=== PATIENT | female | born 1940 | race Caucasian/White ===

== ENCOUNTER 2017-02-01 14:52 | Emergency (ER) | payer BC ==
[2017-02-01 15:34] VITALS: PULSE 84; TEMP 98.2; BMI 19.6
--- NOTE | 2017-02-01 16:15 | PDOC ---
History of Present Illness - General Chief Complaint: Injury Stated Complaint: FALL Time Seen by Provider: 02/01/17 15:51 History Source: Patient (dementia, poor historian), Family (daughter at bedside. ) Exam Limitations: Dementia (daughter at bedside) - History of Present Illness Initial Comments: 02/01/17 16:15 Patient is a 76 year old female visiting from [place], history of dementia , hypertension, B12 deficiency, hypothyroidism, left hip fracture with bilateral hip replacement currently wears a brace for the fracture. As per daughter patient was not a candidate for hip surgical repair. Today mother bent forward and the "left hip popped out". Daughter reports that in November the same happened. Mother is supposed to be wearing a brace and when she does not wear it her hip dislocates. Daughter presented a picture of an xray that demonstrated a significant fracture to the left hip prior to this incident. Patient is non weght bearing. Allergies: No known allergies Medications: [See Medication list] Family History: Non-contributory Social History: Denies smoking, alcohol use, or IVDU Vital signs on arrival are [notable for pulse of 84.] Review of Systems GENERAL/CONSTITUTIONAL: [No fever or chills. No weakness. No weight change.] HEAD, EYES, EARS, NOSE AND THROAT: [No change in vision. No ear pain or discharge. No sore throat. ] CARDIOVASCULAR: [No chest pain or shortness of breath.] RESPIRATORY: [No cough, wheezing, or hemoptysis.] GASTROINTESTINAL: [No nausea, vomiting, diarrhea or constipation. No rectal bleeding.] GENITOURINARY: [No dysuria, frequency, or change in urination.] MUSCULOSKELETAL: [No joint or muscle swelling or pain. No neck or back pain. Left hip pain. ] SKIN AND BREASTS: [No rash or easy bruising.] NEUROLOGIC: [No headache, vertigo, loss of consciousness, or loss of sensation.] ENDOCRINE: [No increased thirst. No abnormal weight change.] HEMATOLOGIC/LYMPHATIC: [No anemia, easy bleeding, or history of blood clots.] ALLERGIC/IMMUNOLOGIC: [No hives or skin allergy. No latex allergy.] Physical Exam: GENERAL: [The patient is awake, alert, and fully oriented, in no acute distress. ] HEAD: [Normal with no signs of trauma.] EYES: [Pupils equal, round and reactive to light, extraocular movements intact, sclera anicteric, conjunctiva clear.] ENT: [Ears normal, nares patent, oropharynx clear without exudates. Moist mucous membranes. No uvula deviation] NECK: [Normal range of motion, supple without lymphadenopathy, JVD, or masses.] LUNGS: [Breath sounds equal, clear to auscultation bilaterally. No wheezes, and no crackles.] HEART: [Regular rate and rhythm, normal S1 and S2 without murmur, rub or gallop. ] ABDOMEN: [Soft, nontender, normoactive bowel sounds. No guarding, no rebound. No masses. No bruising or abrasions] RECTAL : [Guaiac negative, normal rectal tone.] MUSCULOSKELETAL: [Decreased ROM to left hip related to pain. + deformity, posterior. No clubbing or cyanosis. No cords, erythema, or tenderness. ] NEUROLOGICAL: [Cranial nerves II through XII grossly intact. Normal speech, normal gait.] Past History - Past Medical History Allergies/Adverse Reactions: Allergies Allergy/AdvReac Type Severity Reaction Status Date / Time No Known Allergies Allergy Verified 02/01/17 15:01 Home Medications: Ambulatory Orders Atenolol [Tenormin -] 12.5 mg PO DAILY 02/01/17 Atorvastatin Ca [Lipitor] 40 mg PO HS 02/01/17 Clonazepam [Klonopin -] 0.5 mg PO DAILY 02/01/17 Levothyroxine [Synthroid -] 100 mcg PO DAILY 02/01/17 Memantine HCl [Namenda -] 10 mg PO BID 02/01/17 Rivastigmine 1 each TD DAILY 02/01/17 Trazodone HCl 50 mg PO DAILY 02/01/17 Cardiac Disorders: Yes COPD: No Dementia: Yes HTN: Yes Hypercholesterolemia: Yes - Suicide/Smoking/Psychosocial Hx Smoking History: Never smoked Have you smoked in the past 12 months: No Information on smoking cessation initiated: No Hx Alcohol Use: No Drug/Substance Use Hx: No Substance Use Type: None *Physical Exam - Vital Signs Last Vital Signs Temp Pulse Resp BP Pulse Ox 98.2 F 84 18 124/72 99 02/01/17 14:55 02/01/17 14:55 02/01/17 14:55 02/01/17 14:55 02/01/17 14:55 ED Treatment Course - RADIOLOGY Radiology Studies Ordered: Category Date Time Status HIP & PELVIS-LEFT [RAD] Stat Radiology 02/01/17 16:13 Ordered Medical Decision Making - Medical Decision Making 02/01/17 17:20 A/P : Patient with deformity to left hip. R/o recurrent dislocation. Sent to x- ray. There is a posterior left hip dislocation. Dr. Perez and Dr. Murguia to reduce. Saline lock, Morphine 2 mg IV given. Twelve-lead EKG was performed and reviewed by myself and Dr. Perez there is a ventricular rate of 78 QRS of 84. There is normal sinus rhythm Impression: Normal Sinus rhythmn. Consent obtained for hip reduction and moderate sedation from daughter. I am signing this patient out to my colleague: Dr. Murguia In brief, this patient is being seen in the ED for a chief complaint of: [Left hip dislocation, recurrent, past history of fracture to same] I have completed the initial assessment interview note and have ordered: [X-ray , saline lock, morphine and have also obtained consent for moderate sedation and hip reduction] I have reviewed the following results: [Xrays with Dr. Perez] Plan for disposition is as follows: [Pending reduction and moderate sedation. ] *DC/Admit/Observation/Transfer Diagnosis at time of Disposition: Hip dislocation, left Qualifiers: Encounter type: initial encounter Qualified Code(s): S73.005A - Unspecified dislocation of left hip, initial encounter - Discharge Dispostion Disposition: HOME Condition at time of disposition: Stable - Referrals Referrals: STAFF,NOT ON [Primary Care Provider] - - Patient Instructions Printed Discharge Instructions: How to Use a Sling, DI for Hip Dislocation -- Adult Additional Instructions: Please return to the emergency department with any new or worsening symptoms. Please follow up with orthopedics within the next 72 hours. - Post Discharge Activity
[2017-02-01] MEDS ORDERED: morphine CARPU-JECT 2 MG/1 ML DISP.SYRIN IVPUSH ONE (17:11)
[2017-02-01] MEDS ORDERED: morphine SULFATE 4 MG/ML VIAL ONE (17:24)
--- NOTE | 2017-02-01 17:34 | PDOC ---
*Physical Exam - Vital Signs Last Vital Signs Temp Pulse Resp BP Pulse Ox 98.2 F 84 18 124/72 99 02/01/17 14:55 02/01/17 14:55 02/01/17 14:55 02/01/17 14:55 02/01/17 14:55 Medical Decision Making - Medical Decision Making 02/01/17 17:29 Patient seen and interviewed by me. 76 year old female with bilateral hip replacements p/w left hip pain. On my physical exam, pt was 2+ DP pulse LLE, internally rotated LLE and left hip tenderness. Sensation intact throughout. Radiograph, on my interpretation, demonstrates no acute fracture but a left hip dislocation. Pt is neurovascularly intact at the moment. I had discussed the case with the daughter. I explained the risks of moderate sedation, including blood pressure reduction and respiratory depression. After discussion, daughter consents for moderate sedation and left hip reduction. *DC/Admit/Observation/Transfer - Referrals Referrals: STAFF,NOT ON [Primary Care Provider] - - Patient Instructions - Post Discharge Activity
[2017-02-01] MEDS ORDERED: PROPOFOL 200 MG/20 ML VIAL IVPUSH ONE (17:54)
--- NOTE | 2017-02-01 18:17 | PDOC ---
*Physical Exam - Vital Signs Last Vital Signs Temp Pulse Resp BP Pulse Ox 98.2 F 84 18 124/72 99 02/01/17 14:55 02/01/17 14:55 02/01/17 14:55 02/01/17 14:55 02/01/17 14:55 - Physical Exam Comments: 02/01/17 18:16 GENERAL: Awake, alert, and fully oriented, in no acute distress HEAD: No signs of trauma, normocephalic, atraumatic EYES: PERRLA, EOMI, sclera anicteric, conjunctiva clear ENT: Auricles normal inspection, hearing grossly normal, nares patent, oropharynx clear without exudates. Moist mucosa NECK: Normal ROM, no JVD, or masses LUNGS: No distress, speaks full sentences, clear to auscultation bilaterally HEART: Regular rate and rhythm, normal S1 and S2, no murmurs, rubs or gallops, peripheral pulses normal and equal bilaterally. ABDOMEN: Soft, nontender, normoactive bowel sounds. No guarding, no rebound. No masses EXTREMITIES : Left leg appears shortened and internally rotated. Palpable femoral and posterior tibial pulses in BL LE. Normal inspection, Normal range of motion, no edema. No clubbing or cyanosis. SKIN: Warm, Dry, normal turgor, no rashes or lesions noted. ED Treatment Course - Medications Given in the ED: ED Medications Discontinued Medications Generic Name Dose Route Start Last Admin Trade Name Freq PRN Reason Stop Dose Admin Morphine Sulfate 2 mg 02/01/17 17:11 02/01/17 17:30 Morphine Injection - IVPUSH 02/01/17 17:12 2 mg ONCE ONE Administration Medical Decision Making - Medical Decision Making 02/01/17 19:07 Received handoff from MAIL CENSOR Andolino. 76 yo F with h/o HTN, dementia, hypothyroidism, and left hip fracture s/p bilateral hip replacement with brace who presents with immobility of left hip s/ p mechanical fall. Patient with h/o recent Left hip fracture and dislocation. X- ray reveals posterior L hip dislocation. Given Morphine 2 mg IV, and NS 1 L. Consent obtained for hip reduction and moderate sedation from daughter. ED Course: Manual reduction of L hip performed by Dr. Perez and Dr. Murguia Repeat plain film 02/01/17 19:31 L Knee Immobilizer placed. 11/25/17 20:01 Discussed X ray findings with daughter, and she requests discharge back home to [place]. Patient is stable for discharge and advised patient to follow up with Ortho within 72 hours. Discussed return precautions. *DC/Admit/Observation/Transfer Diagnosis at time of Disposition: Hip dislocation, left Qualifiers: Encounter type: initial encounter Qualified Code(s): S73.005A - Unspecified dislocation of left hip, initial encounter - Discharge Dispostion Disposition: HOME Condition at time of disposition: Stable Admit: No - Referrals Referrals: STAFF,NOT ON [Primary Care Provider] - - Patient Instructions Printed Discharge Instructions: How to Use a Sling, DI for Hip Dislocation -- Adult Additional Instructions: Please return to the emergency department with any new or worsening symptoms. Please follow up with orthopedics within the next 72 hours. - Post Discharge Activity - Attestations Physician Attestion: 02/01/17 20:07 I attest to the information provided in this note.
[2017-02-01] MEDS ORDERED: PROPOFOL 20 ML ONE (18:26)
[2017-02-01] MEDS ORDERED: SODIUM CHLORIDE 1,000 ML IV STA (19:03)
--- NOTE | 2017-02-01 19:10 | PDOC ---
History of Present Illness - General Chief Complaint: Injury Stated Complaint: FALL Time Seen by Provider: 02/01/17 15:51 Past History - Past Medical History Allergies/Adverse Reactions: Allergies Allergy/AdvReac Type Severity Reaction Status Date / Time No Known Allergies Allergy Verified 02/01/17 15:01 Home Medications: Ambulatory Orders Atenolol [Tenormin -] 12.5 mg PO DAILY 02/01/17 Atorvastatin Ca [Lipitor] 40 mg PO HS 02/01/17 Clonazepam [Klonopin -] 0.5 mg PO DAILY 02/01/17 Levothyroxine [Synthroid -] 100 mcg PO DAILY 02/01/17 Memantine HCl [Namenda -] 10 mg PO BID 02/01/17 Rivastigmine 1 each TD DAILY 02/01/17 Trazodone HCl 50 mg PO DAILY 02/01/17 Cardiac Disorders: Yes COPD: No Dementia: Yes HTN: Yes Hypercholesterolemia: Yes - Suicide/Smoking/Psychosocial Hx Smoking History: Never smoked Have you smoked in the past 12 months: No Information on smoking cessation initiated: No Hx Alcohol Use: No Drug/Substance Use Hx: No Substance Use Type: None *Physical Exam - Vital Signs Last Vital Signs Temp Pulse Resp BP Pulse Ox 98.2 F 81 20 120/77 100 02/01/17 14:55 02/01/17 18:39 02/01/17 18:39 02/01/17 18:39 02/01/17 18:39 Procedures - Consent Consent obtained: Verbal, Written, From Patient, From Guardians - Joint Reduction Left Joint Reduction Site: left: Hip, Posterior Dislocation Pre-Procedure NV Exam: normal Conscious Sedation: Yes Reduction Attempts: 2 Procedure: Other Complications: No Post Joint Reduction Film: joint reduced Immobilized: Yes Progress: 02/01/17 19:05 Pt placed on 2L NC On assistant finance manager with crash cart at bedside. Blood pressures and oxygen saturations stable throughout moderate sedation. Pt given 50 mg propofol and 25 mcg fentanyl 1L of NS given. left hip was hyperflexed and internally/externally rotated and with traction, the hip was relocated. Maintained normal L DP pulse after reduction Left hip xray ordered for confirmation. ED Treatment Course - Medications Given in the ED: ED Medications Discontinued Medications Generic Name Dose Route Start Last Admin Trade Name Freq PRN Reason Stop Dose Admin Fentanyl 100 mcg 02/01/17 17:59 02/01/17 18:57 Sublimaze Injection - IVPUSH 02/01/17 18:00 25 mcg ONCE ONE Administration Morphine Sulfate 2 mg 02/01/17 17:11 02/01/17 17:30 Morphine Injection - IVPUSH 02/01/17 17:12 2 mg ONCE ONE Administration Propofol 40,000 mcg 02/01/17 17:54 02/01/17 18:58 Diprivan - IVPUSH 02/01/17 17:55 50,000 mcg ONCE ONE Administration Medical Decision Making - Medical Decision Making 02/01/17 19:55 Repeat hip xray demonstrates successful reduction of the left hip. *DC/Admit/Observation/Transfer - Referrals Referrals: STAFF,NOT ON [Primary Care Provider] - - Patient Instructions - Post Discharge Activity
[2017-02-01 20:23] VITALS: BP 105/64
== END 2017-02-01 20:52 | disposition home or self-care (01) ==
LOC: JER 14:52
PROC: 0SSBXZZ Reposition Left Hip Joint, External Approach (ICD-10-PCS; principal; 2017-02-01)
DX: M24.452 Recurrent dislocation, left hip (principal); Z96.643 Presence of artificial hip joint, bilateral; I10 Essential (primary) hypertension; E78.00 Pure hypercholesterolemia, unspecified; E03.9 Hypothyroidism, unspecified; F03.90 Unspecified dementia, unspecified severity, without behavioral disturbance, psychotic disturbance, mood disturbance, and anxiety; E53.8 Deficiency of other specified B group vitamins
CPT/HCPCS: 73502-TC-LT; 73523-TC; 99283-25